=== PATIENT | female | born 1955 ===

== ENCOUNTER 2021-03-30 09:43 | Outpatient (CLI) | payer BC ==
--- NOTE | 2021-03-30 11:10 | Ultrasound Report ---
ULTRASOUND PELVIS INDICATION: Fibroid disease. Pelvic pain.. TECHNIQUE: Transabdominal and Transvaginal. Duplex Color Doppler used: Yes. COMPARISON: None available FINDINGS: Uterus: Present. Size: 8.6 x 4 x 3.9 cm. Endometrial complex: Thickened measuring 1.2 cm. Mass lesions: 1.5 cm fundal fibroid. 1.2 cm anterior fibroid. Additional findings: None. Right Ovary -- Normal. Blood flow: Normal. Cyst or mass: None. Left Ovary--nonvisualized. No adnexal abnormality. Urinary Bladder: Normal. Free Fluid: None. Additional Findings: None. IMPRESSION: 1. Small fibroids. 2. Thickened endometrial stripe without focal abnormality. 3. Left ovary nonvisualized. No adnexal abnormality seen. Signer Name: Marin Corbett MD Signed: 03/30/2021 11:06 AM Workstation Name: [id number]
== END 2021-03-30 09:44 | disposition home or self-care (01) ==
LOC: US 09:43
PROVIDERS: ATTEND Obstetrics & Gynecology
DX: D25.9 Leiomyoma of uterus, unspecified (principal); N92.4 Excessive bleeding in the premenopausal period; R93.89 Abnormal findings on diagnostic imaging of other specified body structures
CPT/HCPCS: 76830; 76856